=== PATIENT | male | born 1960 | race Caucasian/White ===

== ENCOUNTER → 2018-10-13 | Outpatient (CLI) | payer OTHER ==
[~2018-10-13] MED LIST: CALCIUM 500 +1 EAC3 PO; CYMBALTA20 M1 PO; IMDUR SA30 MG PO; LOPRESSOR50 M1 PO; VALIUM2 MG PO; ZANAFLEX4 M1 PO; ZESTRIL10 MG PO
[2018-10-13 10:41] LABS: VITAMIN D, 25-HYDROXY 19.5 ng/mL (30-100)
[2018-10-13 10:42] LABS: PTH INTACT 185.3 pg/mL (18.5-88.0)
== END | disposition home or self-care (01) ==
LOC: LAB 08:53
PROVIDERS: Nurse Practitioner Family
DX: I10 Essential (primary) hypertension (principal); J30.2 Other seasonal allergic rhinitis; E78.6 Lipoprotein deficiency; R79.89 Other specified abnormal findings of blood chemistry; E83.51 Hypocalcemia; E78.5 Hyperlipidemia, unspecified

== ENCOUNTER 2019-01-21 08:25 | Inpatient (IN) | payer OTHER ==
[~2019-01-21] VITALS: Ht 188 cm; Wt 112.0 kg
--- NOTE | ~2019-01-21 | EKG ---
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
--- NOTE | ~2019-01-21 | EKG ---
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
--- NOTE | ~2019-01-21 | EKG ---
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
[2019-01-21 08:32] VITALS: BP 152/93
[2019-01-21 08:49] LABS: BASO % 0.4 % (0.0-1.0); EOS # 0.1 10*3/uL (0.0-0.4); EOS % 1.9 % (1.0-4.0); HEMATOCRIT 45.9 % (42.0-52.0); HEMOGLOBIN 15.2 g/dl (14.0-18.0); LYMPH # 1.3 10*3/uL (1.3-4.4); LYMPH % 24.9 % (27.0-41.0); MEAN CELL VOLUME 94.8 fl (80.0-94.0); MEAN CORPUSCULAR HGB 31.4 pg (27.0-31.0); MEAN CORPUSCULAR HGB CONC 33.1 g/dl (33.0-37.0); MEAN PLATELET VOLUME 11.7 fl (9.6-12.3); MONO # 0.5 10*3/uL (0.1-1.0); MONO % 9.3 % (3.0-9.0); NEUT # 3.3 10*3/uL (2.3-7.9); NEUT % 63.3 % (47.0-73.0); PLATELET COUNT AUTOMATED 168 10*3/uL (130-400); RED BLOOD COUNT 4.84 10*6/uL (4.50-5.90); RED CELL DISTRI WIDTH 13.8 % (0-14.5); WHITE BLOOD COUNT 5.3 10*3/uL (4.8-10.8)
[2019-01-21 09:01] LABS: ACT PARTIAL THROMBO TIME 25.8 SECONDS (20.0-32.1); INTERNATIONAL NORM RATIO 0.9 (2.0-3.5)
[2019-01-21 09:10] VITALS: BP 143/93
[2019-01-21 09:12] LABS: ALKALINE PHOSPHATASE 88 U/L (45-117); BUN 16 mg/dl (7-24); CHLORIDE 107 mmol/L (98-107); CREATININE 1.24 mg/dL (0.70-1.30); POTASSIUM 4.3 mmol/L (3.5-5.1); SGOT/AST 22 IU/L (3-35); SGPT/ALT 41 U/L (12-78); SODIUM 141 mmol/L (136-145); TOTAL PROTEIN 7.6 gm/dL (6.4-8.2); TROPONIN I < 0.015 ng/ml (<0.045)
[2019-01-21 09:29] VITALS: BP 140/87
--- NOTE | 2019-01-21 10:17 | NUR ---
A 58, admitted to , under the services of TYLER Leyva DO with a diagnosis of CHEST PAIN. Chief complaint is SUDDEN ONSET CHEST PAIN RADIATES DOWN RIGHT ARM. Patient arrived via stretcher from ER. Monitor applied. Initial assessment completed. Vital signs taken and recorded. TYLER LEYVA DO notified of admission to the unit. Orders received. See assessment for past medical history, medications and allergies. Patient and/or family oriented to unit. [facility] reviewed. LEONARD SAINZ J
[2019-01-21] MEDS ORDERED: VALIUM2 MG PO (10:30)
[2019-01-21] MEDS ORDERED: ZESTRIL10 MG PO (10:31)
[2019-01-21] MEDS ORDERED: IMDUR SA30 MG PO (10:32)
[2019-01-21] MEDS ORDERED: CYMBALTA20 M1 PO (10:35)
[2019-01-21] MEDS ORDERED: LOPRESSOR50 M1 PO (10:35)
[2019-01-21] MEDS ORDERED: ZANAFLEX4 M1 PO (10:36)
[2019-01-21] MEDS ORDERED: CALCIUM 500 +1 EAC3 PO (10:37)
[2019-01-21 10:58] VITALS: BP 151/91
[2019-01-21 12:00] VITALS: BP 148/85
[2019-01-21 16:00] VITALS: BP 112/73
--- NOTE | 2019-01-21 17:56 | NUR ---
[facility] Discharge instructions reviewed with patient/family. Patient receptive and verbalizes understanding. Follow-up care arranged. Written instructions given to patient/family. JAYDA HUMPHREYS
== END 2019-01-21 17:56 | disposition home or self-care (01) | DRG 206 ==
LOC: ED 08:25 → EDHOLD 09:20 → 4E 09:20
PROVIDERS: Emergency Medicine; ADMIT Internal Medicine
DX: M94.0 Chondrocostal junction syndrome [Tietze] (principal); D75.89 Other specified diseases of blood and blood-forming organs; I10 Essential (primary) hypertension; E78.5 Hyperlipidemia, unspecified; Z96.641 Presence of right artificial hip joint; E66.9 Obesity, unspecified; Z82.49 Family history of ischemic heart disease and other diseases of the circulatory system; Z91.041 Radiographic dye allergy status; Z82.0 Family history of epilepsy and other diseases of the nervous system; Z79.899 Other long term (current) drug therapy; Z68.31 Body mass index [BMI] 31.0-31.9, adult

== ENCOUNTER → 2019-05-04 | Outpatient (CLI) | payer OTHER ==
[2019-05-05 15:19] LABS: URINE VOLUME 4000 mL
== END | disposition home or self-care (01) ==
LOC: LAB 09:38
PROVIDERS: Internal Medicine Endocrinology, Diabetes & Metabolism
DX: E83.51 Hypocalcemia (principal)

== ENCOUNTER → 2019-05-18 | Outpatient (CLI) | payer OTHER ==
[2019-05-18 08:40] LABS: BASO % 0.4 % (0.0-1.0); EOS # 0.1 10*3/uL (0.0-0.4); EOS % 2.6 % (1.0-4.0); HEMATOCRIT 42.9 % (42.0-52.0); HEMOGLOBIN 14.2 g/dl (14.0-18.0); LYMPH # 1.3 10*3/uL (1.3-4.4); LYMPH % 23.9 % (27.0-41.0); MEAN CELL VOLUME 92.5 fl (80.0-94.0); MEAN CORPUSCULAR HGB 30.6 pg (27.0-31.0); MEAN CORPUSCULAR HGB CONC 33.1 g/dl (33.0-37.0); MEAN PLATELET VOLUME 12.2 fl (9.6-12.3); MONO # 0.5 10*3/uL (0.1-1.0); NEUT # 3.4 10*3/uL (2.3-7.9); NEUT % 63.9 % (47.0-73.0); PLATELET COUNT AUTOMATED 160 10*3/uL (130-400); RED BLOOD COUNT 4.64 10*6/uL (4.50-5.90); RED CELL DISTRI WIDTH 13.4 % (0-14.5); WHITE BLOOD COUNT 5.4 10*3/uL (4.8-10.8)
[2019-05-18 09:01] LABS: ALBUMIN 3.9 gm/dl (3.1-4.5); ALKALINE PHOSPHATASE 86 U/L (45-117); BUN 11 mg/dl (7-24); CHLORIDE 107 mmol/L (98-107); CHOLESTEROL 157 mg/dL (<200); CREATININE 1.31 mg/dL (0.70-1.30); HDL CHOLESTEROL 32 mg/dl (40-60); LDL CHOLESTEROL 104 mg/dL (9-159); POTASSIUM 4.2 mmol/L (3.5-5.1); SGOT/AST 15 IU/L (3-35); SGPT/ALT 33 U/L (12-78); SODIUM 139 mmol/L (136-145); TOTAL PROTEIN 7.7 gm/dL (6.4-8.2); TRIGLYCERIDES 107 mg/dl (<150); VLDL CHOLESTEROL 21 mg/dL (6-40)
[2019-05-18 09:12] LABS: FREE T4 0.88 ng/dl (0.76-1.46); THYROID STIM HORMONE (HS) 1.66 uIU/ml (0.358-4.75)
[2019-05-18 09:47] LABS: FERRITIN 41.6 ng/mL (22.0-322.0); VITAMIN D, 25-HYDROXY 42.1 ng/mL (30-100)
[2019-05-18 09:48] LABS: PTH INTACT 80.8 pg/mL (18.5-88.0)
== END | disposition home or self-care (01) ==
LOC: LAB 08:05
PROVIDERS: Internal Medicine Endocrinology, Diabetes & Metabolism; Nurse Practitioner Family
DX: E78.5 Hyperlipidemia, unspecified (principal); E83.51 Hypocalcemia; I10 Essential (primary) hypertension; K90.0 Celiac disease; N25.81 Secondary hyperparathyroidism of renal origin

== ENCOUNTER 2019-06-07 15:35 | Emergency (ER) | payer OTHER ==
[~2019-06-07] VITALS: Ht 188 cm; Wt 111.1 kg
[2019-06-07] MEDS ORDERED: PREDNISONE50 MG PO (18:23)
== END 2019-06-07 18:30 | disposition home or self-care (01) ==
LOC: ED 15:35
DX: T78.3XXA Angioneurotic edema, initial encounter (principal); I10 Essential (primary) hypertension; E78.5 Hyperlipidemia, unspecified; E66.9 Obesity, unspecified; Z68.30 Body mass index [BMI] 30.0-30.9, adult; Z88.7 Allergy status to serum and vaccine; Z91.041 Radiographic dye allergy status; Z88.8 Allergy status to other drugs, medicaments and biological substances; Z79.899 Other long term (current) drug therapy

== ENCOUNTER → 2020-10-25 | Outpatient (CLI) | payer OTHER ==
[~2020-10-25] MED LIST changes: +PREDNISONE50 MG PO
== END | disposition home or self-care (01) ==
LOC: RAD 12:48
PROVIDERS: ATTEND Nurse Practitioner Family
DX: M10.071 Idiopathic gout, right ankle and foot (principal); M79.671 Pain in right foot

== ENCOUNTER → 2021-08-22 | Outpatient (CLI) | payer OTHER | END | disposition home or self-care (01) | LOC: RAD 15:00 | PROVIDERS: ATTEND Nurse Practitioner Family | DX: U07.1 COVID-19 (principal); J32.9 Chronic sinusitis, unspecified; R09.81 Nasal congestion; J10.1 Influenza due to other identified influenza virus with other respiratory manifestations ==

== ENCOUNTER → 2023-02-17 | Outpatient (CLI) | payer OTHER ==
[2023-02-21 05:06] LABS: ALTERNARIA ALTERNATA, IGE <0.10 kU/L (Class 0); AMERICAN ELM, IGE <0.10 kU/L (Class 0); ASPERGILLUS FUMIGATU, IGE <0.10 kU/L (Class 0); BERMUDA GRASS, IGE <0.10 kU/L (Class 0); BIRCH, COMMON SILVER IGE <0.10 kU/L (Class 0); CLADOSPORIUM HERBARU, IGE <0.10 kU/L (Class 0); D FARINAE MITE <0.10 kU/L (Class 0); D PTERONYSSINUS 0.16 kU/L (Class 0/I); DOG DANDER, IGE <0.10 kU/L (Class 0); MAPLE LEAF SYCAMORE, IGE <0.10 kU/L (Class 0); MAPLE/BOX ELDER, IGE <0.10 kU/L (Class 0); MOUSE URINE IGE <0.10 kU/L (Class 0); PENICILLIUM CHRYSOGENUM, IGE <0.10 kU/L (Class 0); ROUGH PIGWEED, IGE <0.10 kU/L (Class 0); SHEEP SORREL (DOCK), IGE <0.10 kU/L (Class 0); SHORT RAGWEED, IGE <0.10 kU/L (Class 0); TIMOTHY, IGE <0.10 kU/L (Class 0); WALNUT TREE, IGE <0.10 kU/L (Class 0); WHITE ASH, IGE <0.10 kU/L (Class 0); WHITE MULBERRY, IGE <0.10 kU/L (Class 0); WHITE OAK, IGE <0.10 kU/L (Class 0)
== END | disposition home or self-care (01) ==
LOC: LAB 13:09
PROVIDERS: ATTEND Specialist
DX: T78.40XA Allergy, unspecified, initial encounter (principal); X58.XXXA Exposure to other specified factors, initial encounter

== ENCOUNTER 2023-04-18 18:32 | Emergency (ER) | payer OTHER ==
[~2023-04-18] VITALS: Ht 187.9 cm; Wt 113.4 kg
[2023-04-18] MEDS ORDERED: ALLOPURINOL100 MG PO (19:00)
[2023-04-18] MEDS ORDERED: CEPHALEXIN500 M1 PO (22:02)
== END 2023-04-18 22:07 | disposition home or self-care (01) ==
LOC: ED 18:32
DX: S61.216A Laceration without foreign body of right little finger without damage to nail, initial encounter (principal); I10 Essential (primary) hypertension; Z86.16 Personal history of COVID-19; Z88.7 Allergy status to serum and vaccine; Z91.041 Radiographic dye allergy status; Z88.8 Allergy status to other drugs, medicaments and biological substances; Z98.890 Other specified postprocedural states; W26.8XXA Contact with other sharp object(s), not elsewhere classified, initial encounter; Y93.89 Activity, other specified; Y92.89 Other specified places as the place of occurrence of the external cause; Y99.0 Civilian activity done for income or pay

== ENCOUNTER 2025-06-01 12:45 | Emergency (ER) | payer OTHER ==
[~2025-06-01 12:45] MED LIST changes: +ALLOPURINOL100 MG PO; +CEPHALEXIN500 M1 PO
[2025-06-01] MEDS ORDERED: SODIUM CHLORIDE 0.9% 1,000 ML IV ONE (12:55)
[2025-06-01] MEDS ORDERED: LOSARTAN POTAS100 M1 PO (12:56)
[2025-06-01 13:32] LABS: BASO # 0.0 10*3/uL (0.0-0.1); BASO % 0.6 % (0.0-1.0); EOS # 0.1 10*3/uL (0.0-0.4); EOS % 1.3 % (1.0-4.0); MEAN CELL VOLUME 100.6 fl (80.0-94.0); MEAN CORPUSCULAR HGB 32.3 pg (27.0-31.0); MEAN PLATELET VOLUME 12.1 fl (9.6-12.3); MONO # 0.5 10*3/uL (0.1-1.0); MONO % 7.3 % (3.0-9.0); NEUT # 5.1 10*3/uL (2.3-7.9); NEUT % 72.0 % (47.0-73.0); NUCLEATED RED BLOOD CELL 0.0 % (0.0-0.0); NUCLEATED RED BLOOD CELL 0.0 10*3/uL (0.0-0.0); PLATELET COUNT AUTOMATED 162 10*3/uL (130-400); RED CELL DISTRI WIDTH 13.3 % (0-14.5)
[2025-06-01 13:50] LABS: BUN 19.0 mg/dl (9-23)
[2025-06-01 14:31] LABS: ACT PARTIAL THROMBO TIME 22.8 SECONDS (20.0-32.1)
== END 2025-06-01 14:41 | disposition home or self-care (01) ==
LOC: ED 12:45
PROVIDERS: Emergency Medicine
DX: K62.5 Hemorrhage of anus and rectum (principal); R19.7 Diarrhea, unspecified; I10 Essential (primary) hypertension; E78.5 Hyperlipidemia, unspecified; Z88.4 Allergy status to anesthetic agent; Z91.041 Radiographic dye allergy status; Z88.8 Allergy status to other drugs, medicaments and biological substances; Z79.899 Other long term (current) drug therapy; Z96.641 Presence of right artificial hip joint; Z98.890 Other specified postprocedural states